=== PATIENT | female | born 1965 | race Caucasian/White ===

== ENCOUNTER 2018-11-14 10:33 | Emergency (ER) | payer SELFPAY ==
[~2018-11-14] VITALS: Ht 157.5 cm; Wt 73.2 kg
[2018-11-14 10:39] VITALS: BP 155/78; PULSE 73; RESP 18; Ht 157.5 cm; Wt 73.2 kg
[2018-11-14] MEDS ORDERED: IBUPROFEN LIQUID (PED) 20 MG/ML CUP PO STA (11:58)
[2018-11-14] MEDS ORDERED: ACET160O41 PO (13:20)
[2018-11-14] MEDS ORDERED: MUPI22OI2 TOP (13:23)
[2018-11-14] MEDS ORDERED: BENZ1LOZ49 MM (13:28)
--- NOTE | 2018-11-14 14:55 | ERD ---
ER Documentation Chief Complaint Chief Complaint possible insect bite to left eyebrow x 3 days HPI Is a 53-year-old female patient presents emergency room with complaint of small area of cellulitis to the left lateral forehead starting 3 days ago, patient believes she was bit by spider. Yesterday patient began having throat pain, headache, nausea, no cough, no fevers. ROS All systems reviewed and are negative except as per history of present illness. Medications Home Meds Active Scripts Benzocaine/Menthol* (Chloraseptic* Max Lozenge) 1 Each Lozenge, 1 LOZENGE MM Q3H PRN for SORE THROAT for 5 Days, #15 LOZENGE Prov:CALLI SIMON NP 11/14/18 Mupirocin* (Bactroban*) 2% -22 Gram Oint...g., 1 APPLIC TOP BID for RASH for 7 Days, #22 G Prov:CALLI SIMON NP 11/14/18 Acetaminophen* (Acetaminophen* Susp) 160 Mg/5 Ml Oral.susp, 30 ML PO Q4H PRN for PAIN OR FEVER MDD 5 for 5 Days, #350 ML Prov:CALLI SIMON NP 11/14/18 Allergies Allergies: Coded Allergies: No Known Allergy (Unverified , 11/14/18) PMhx/Soc Medical and Surgical Hx: pt denies Medical Hx, pt denies Surgical Hx Hx Alcohol Use: No Hx Substance Use: No Hx Tobacco Use: No Smoking Status: Never smoker FmHx Family History: No diabetes, No coronary disease, No other Physical Exam Vitals Vital Signs Date Temp Pulse Resp B/P (MAP) Pulse Ox O2 O2 Flow FiO2 Time Delivery Rate 11/14/18 97.9 73 18 155/78 98 10:39 (103) Physical Exam Const: No acute distress Head: Atraumatic Eyes: Normal Conjunctiva, PERRL ENT: Normal External Ears, TM clear BL, Nose without drainage, pharynx pink, moist, no lesions, tonsils +2 with exudate Neck: Full range of motion. No meningismus. Anterior lymphadenopathy. Resp: Clear to auscultation bilaterally, wheezing, no stridor, no drooling Cardio: Regular rate and rhythm, no murmurs Abd: Soft, non tender, non distended. Normal bowel sounds, no hepato-or splenomegaly Skin: No petechiae, left lateral forehead with 2 cm x 2 cm area of blanchable redness and induration Back: No midline or flank tenderness, no CVT Ext: No cyanosis, or edema Neur: Awake and alert, clear speech Psych: Normal Mood and Affect Results 24 hrs Laboratory Tests Test 11/14/18 12:24 11/14/18 13:22 Monoscreen Positive Bedside Urine pH (LAB) 7.0 Bedside Urine Protein (LAB) Negative Bedside Urine Glucose (UA) Negative Bedside Urine Ketones (LAB) Negative Bedside Urine Blood 2+ Bedside Urine Nitrite (LAB) Negative Bedside Urine Leukocyte Esterase (L Negative Current Medications Medications Dose Sig/Sarah Start Time Status Last (Trade) Ordered Route PRN Stop Time Admin Dose Reason Admin Ibuprofen 600 mg ONCE STAT 11/14/18 DC 11/14/18 (Motrin PO 11:58 12:16 Liquid 11/14/18 12:01 (Ped)) Procedures/MDM PROCEDURES/MDM LAB INTERPRETATION: + Lipscomb, -strep, urinalysis negative for nitrites or leukocyte esterase -Medications: Ibuprofen Patient tolerated medication well with no adverse reactions. Patient reported improvement in pain. MDM: This is a 53-year-old female patient presents emergency room with a red and area to left lateral forehead and sore throat. The redness to the forehead appears to be a superficial cellulitis that can be treated appropriately with topical antibiotic. I have a low suspicion for meningitis as the patient is not toxic appearing, no nuchal rigidity, and no altered mental status. Exam and w/u not consistent w/ deep space infection of the face, throat, or mastoids. No evidence of impending airway compromise or meningitis. Patient has been given strict return precautions and instructions on self-care including hydration, rest, use of acetaminophen and throat lozenges. Patient has been instructed to avoid contact sports or vulnerable activities for 4 weeks. The patient requires a follow up with the primary care provider in the next 48h. If symptoms persist, worsen or new symptoms develop, then patient should return to the ED immediately. Disclaimer: Inadvertent spelling and grammatical errors are likely due to EHR/dictation software use and do not reflect on the overall quality of patient care. Also, please note that the electronic time recorded on this note does not necessarily reflect the actual time of the patient encounter. DISPOSITION and PLAN: RX: Tylenol, ibuprofen, Chloraseptic lozenges, Bactroban The patient has been discharge home to follow-up with community physician. Departure Diagnosis: Primary Impression: Cellulitis Site of cellulitis: face Qualified Codes: L03.211 - Cellulitis of face Additional Impression: Acute tonsillitis due to infectious mononucleosis Condition: Stable Patient Instructions: Mononucleosis, Cellulitis, Facial [facility] Usted se botello hecho un examen mdico de control que le indica que no est en isacc condicin que requiera tratamiento urgente en el Departamento de Emergencia. Un estudio ms profundo y el tratamiento de pagan condicin pueden esperar sin ningn riesgo hasta que usted sea atendida/o en el consultorio de pagan mdico o isacc clnica. Es responsabilidad suya arreglar isacc nely para el seguimiento del jenn. MANEJO DE CONDICIONES NO URGENTES EN EL FUTURO 1) Si usted tiene un mdico de atencin primaria: Usted debera llamar a pagan mdico de atencin primaria antes de venir al departamento de emergencia. Despus de las horas de consultorio, pagan doctor o pagan asociado/a est disponible por telfono. El mdico o enfermero de nasra en el servicio telefnico puede asesorarle por filipe medio para atender el problema, o jenn contrario se puede programar isacc nely. 2) Si usted no tiene un mdico de atencin primaria: Llame al mdico o clnica de referencia que aparece abajo em las horas de consultorio para hacer isacc nely para que le vean. CLINICAS: [facility] [phone] [address] [facility] [phone] [facility] [phone] [facility] [phone] [facility] [phone] [address] [facility] [phone] [facility] () Sarina se botello hecho un examen mdico de control que le indica que no est en isacc condicin que requiera tratamiento urgente en el Departamento de Emergencia. Un estudio ms profundo y el tratamiento de pagan condicin pueden esperar sin ningn riesgo hasta que usted sea atendida/o en el consultorio de pagan mdico o isacc clnica. Es responsabilidad suya arreglar isacc nely para el seguimiento del jenn. MANEJO DE CONDICIONES NO URGENTES EN EL FUTURO 1) Si usted tiene un mdico de atencin primaria: Usted debera llamar a pagan mdico de atencin primaria antes de venir al departamento de emergencia. Despus de las horas de consultorio, pagan doctor o pagan asociado/a est disponible por telfono. El mdico o enfermero de nasra en el servicio telefnico puede asesorarle por filipe medio para atender el problema, o jenn contrario se puede programar isacc nely. 2) Si usted no tiene un mdico de atencin primaria: Llame al mdico o condado institucions de referencia que aparece abajo em las horas de consultorio para hacer isacc nely para que le vean. SI USTED NO PUEDE PAGAR PARA EVER UN MEDICO puede ir a: [facility] [id number] [place] [address] [facility] [address] [place] [address] [facility] [address] [place] [address] [address] [facility] [address] [place] [address] Additional Instructions: Thank you very much for allowing us to participate in your care. Your health and safety is our top priority at [facility]. Call your primary care doctor TOMORROW for an appointment during the next 2-4 days and bring all the information and medications prescribed. Have prescriptions filled and follow precisely the directions on the label. If the symptoms get worse and your provider is unavailable, return to the Emergency Department immediately. Mononucleosis is a virus. There are no antibiotics that are prescribed for this condition. Use Tylenol or ibuprofen for pain. Use Chloraseptic lozenges for throat pain. Return to the emergency room immediately with any left-sided abdominal pain, changing or worsening of condition. Do not participate in contact sports or any activity that could result in abdominal injury for 4 weeks. Please follow-up with your primary care doctor in the next week for reevaluation. CALLI SIMON NP Nov 14, 2018 14:55
== END 2018-11-14 14:21 | disposition home or self-care (01) ==
LOC: FTE 10:33
DX: L03.211 Cellulitis of face (principal); J03.90 Acute tonsillitis, unspecified; B27.90 Infectious mononucleosis, unspecified without complication
CPT/HCPCS: 81003; 86308; 87880; 99283